=== PATIENT | male | born 1990 | race Caucasian/White ===

== ENCOUNTER 2019-03-07 14:15 | Emergency (ER) | payer OTHER, SELFPAY ==
--- NOTE | ~2019-03-07 | XR_ITS ---
EXAMINATION: XR thoracic spine min 4V EXAM DATE: 03/07/2019 15:08 INDICATION: Initial encounter following injury, with pain of the mid to upper back. Syncope. TECHNIQUE: Frontal and lateral projections of the thoracic spine as well as lateral swimmers projecti on of the upper thoracic spine for interpretation. There is no prior study for comparison. FINDINGS: There are 3 consecutive mid thoracic vertebral body compression fractures, possibly T3-5 o r T4-6, with the upper most level having mild anterior wedging, the middle compression fracture havin g moderate compression and the inferior most of 3 having mild compression. These are identified on th e lateral projection, have been indicated. One or more of these could be acute or have acute componen t. The vertebral body and disc heights are otherwise well maintained. The vertebral bodies are aligne d in the AP dimension. Paraspinal soft tissue is unremarkable. IMPRESSION: 3 consecutive mid thoracic mild to moderate compression fractures, age-indeterminate. Reviewed, dictated and finalized at location B. [employer]
[2019-03-07 14:33] VITALS: BP 126/77; PULSE 98; RESP 14; TEMP 36.8; O2SAT 100
--- NOTE | 2019-03-07 14:47 | ED.BACK ---
HPI - Back Pain/Injury General Chief Complaint: Back Pain/Injury Stated Complaint: back pain Time Seen by Provider: 03/07/19 14:47 Source: patient and RN notes reviewed History of Present Illness HPI Narrative: Patient is a 29-year-old male who presents the urgent care with complaints of mid back pain. Patient states that status post syncopal episode approximately 1-1/2 weeks ago and falling onto a linoleum floor, patient started to have excruciating back pain. Patient states that worsened within the last couple days. Patient has been using an old prescription of 800 mg ibuprofen. Patient states he also uses gabapentin for restless leg syndrome, however he was out of the medication. Patient denies any recent trauma, injury, fall. Denies any loss of bowel or bladder or radiation of the pain. No other acute complaints. No acute distress noted. Patient had a plan of care. Related Data Allergies Allergy/AdvReac Type Severity Reaction Status Date / Time No Known Allergies Allergy Verified 03/07/19 14:43 Review of Systems Review of Systems: Narrative: CONSTITUTIONAL: Denies fever, chills, or sweats. EYES: Denies visual changes, redness, or discharge. ENT: Denies rhinorrhea, congestion, sore throat, or otalgia. CARDIOVASCULAR: Denies chest pain, palpitations, or edema. RESPIRATORY: Denies cough or dyspnea. GASTROINTESTINAL: Denies abdominal pain, nausea, vomiting, or diarrhea. GENITOURINARY: Denies dysuria or hematuria. SKIN: Denies rash or itching. MUSCULOSKELETAL: Reports of mid back pain NEUROLOGIC: Denies headache, numbness, or weakness. PMFSH Comments At the time of my signature, I reviewed and agree with the nursing past medical, surgical, social, and family history. There is no relevant family history pertinent to the patient complaint. Exam Narrative: Exam Narrative: GENERAL: This is a well-nourished, well-developed patient, in no apparent distress. HEAD: normocephalic, atraumatic. EYES: PERRL. Sclera clear/white. Vision is grossly intact. EARS: External ears normal NOSE: External nose normal with no obvious nasal discharge THROAT: Mucous membranes moist NECK: Neck supple CARDIOVASCULAR: Regular rate and rhythm without murmurs, gallops, or rubs. RESPIRATORY: Clear to auscultation. Breath sounds equal bilaterally. No wheezes, rales, or rhonchi. SKIN: warm, intact with no suspicious lesions or rash, good texture and turgor. NEURO: awake, alert, and oriented to person, place and time. There were no obvious focal neurologic abnormalities. EXTREMITIES: No clubbing, cyanosis, or edema. BACK: Diffuse tenderness to the thoracic spine without deformity or crepitance. Course Vital Signs Vital signs: Vital Signs Temperature 98.3 F 03/07/19 14:33 Pulse Rate 98 03/07/19 14:33 Respiratory Rate 14 03/07/19 14:33 Blood Pressure 126/77 03/07/19 14:33 Pulse Oximetry 100 03/07/19 14:33 Temperature 98.3 F 03/07/19 14:33 Pulse Rate 98 03/07/19 14:33 Respiratory Rate 14 03/07/19 14:33 Blood Pressure 126/77 03/07/19 14:33 Pulse Oximetry 100 03/07/19 14:33 Reviewed MDM - Back Pain/Injury MDM Narrative Medical decision making narrative: Reviewed x-ray results with the patient. He is aware that there are 3 consecutive compression fractures in the thoracic spine. Advised the patient to take the Vicodin intermittently with ibuprofen as needed for pain. May use ice or heat. Patient should follow-up with his PCP as scheduled on March 15 for possible referral to pain management. If you develop any increase in symptoms associated with loss of bowel or bladder or severe radiation of the pain?go to the emergency room. Differential Diagnosis Differential diagnosis: Likely lumbar radiculopathy, sciatica, strain of lumbar region and discitis Critical Care Time Critical Care Time Critical Care Time: No Discharge Plan Discharge Clinical Impression: Compression fracture Patient Disposition: H
== END 2019-03-07 15:25 | disposition home or self-care (01) ==
PROVIDERS: Emergency Provider Nurse Practitioner Family
DX: S22.000A Wedge compression fracture of unspecified thoracic vertebra, initial encounter for closed fracture (principal)
CPT/HCPCS: 72074; 99213; G0463